=== PATIENT | female | born 1935 | race Caucasian/White ===

== ENCOUNTER 2016-03-02 11:47 | Emergency (ER) | payer OTHER ==
[~2016-03-02 11:47] MED LIST: CALCIUM 600 PO; FLONASE AL50 MCG/ACT; FLOVENT HFA110 MCG IN; LISINOPRIL10 MG PO; LOVASTATIN20 MG PO; MULTIPLE VITAMIN PO; PERCOCET1 TA4 PO; PROAIR HFA IN; RANITIDINE HCL150 MG PO; VITAMIN B12100 MCG PO; VITAMIN D-31000 UNIT PO
--- NOTE | 2016-03-02 14:31 | ED ORDER SUMMARY ---
..... Patient: BIB CABRAL OrderSheet [facility] VisitID: [id number] [address] [place] [address] 81y, F Registration Date/Time: 03/02/2016 ORDER SHEET Weight: 77.1 kg (stated) Allergies: No Known Drug Allergy GENERAL ORDERS: US Venous Left Urgent (13:03 03/02/2016 Martha DYER) (Ack 13:17 TBergley) (13:54 TBergley) PT with INR Urgent (14:27 03/02/2016 Martha DYER) (Ack 14:54 TBergley) (15:04 TBergley) CBC w Diff Urgent (14:27 03/02/2016 Martha DYER) (Ack 14:54 TBergley) (15:04 TBergley) MEDICATION ORDERS: Lovenox Subcut 80 mg (NOW) (14:26 03/02/2016 Martha DYER) (15:36 Deric R.N.) - (COUMADIN 5 MG) (14:26 03/02/2016 Martha DYER) (15:36 Deric R.N.) IV FLUIDS: ORDER SHEET NOTES: [Electronically signed by Himanshu Lee R.N. (19:19 03/02/2016)] [Electronically signed by Richie Nixon MD (14:10 03/04/2016)] [Electronically locked/signed by Himanshu Lee R.N. (19:19 03/02/2016)]
--- NOTE | 2016-03-02 14:31 | ED CLINICAL REPORT ---
Clinical Report - Physicians/Mid Levels [facility] [address] [place] [address] 03/02/2016 11:48 Patient: BIB CABRAL Arrived- By private vehicle. Historian- patient. HISTORY OF PRESENT ILLNESS Chief Complaint: LOWER EXTREMITY PAIN and SWELLING. This started yesterday and is still present (Ms Cabral had a bunion repair Feb 08. Yesterday she noted pain and swelling the the proximal medial L thigh. There is no chest pain or shortness of breath.). It was gradual in onset. Modifying factors. (worse with palpation). Severity is described as being moderate. The quality is noted to be "pain". Location: Proximal L thigh. The patient has not had redness. No difficulty walking. No bladder dysfunction, bowel dysfunction, sensory loss or motor loss. Patient denies an injury. Similar symptoms previously: None. Recent medical care: ( Recent bunion repair). REVIEW OF SYSTEMS No cough, chest pain, difficulty breathing, abdominal pain or vomiting. No diarrhea. PAST HISTORY ( PCP: Victor Hugo Winters COPD SURGERY HX: Cholecystectomy. Had hysterectomy. ( bunionectomy on 02/09/16)). SOCIAL HISTORY Former smoker. ADDITIONAL NOTES The nursing notes have been reviewed. PHYSICAL EXAM Vital Signs: 03/02/2016 15:25 BP: 147/60. HR: 75. RR: 20. O2 saturation: 95%. Temp: 98.1 F. Pain level now: 0/10. 03/02/2016 12:18 BP: 128/63. HR: 76. RR: 18. O2 saturation: 92%. Temp: 97.8 F. Pain level now: 8/10. Appearance: Alert. No acute distress. Respiratory: No respiratory distress. Breath sounds normal. Abdomen: Soft and nontender. Skin: Skin warm. Normal skin color. Extremities: Left thigh: mild tenderness located in the medial aspect of upper thigh. (toes are pink and warm with nl sensation). LABS, X-RAYS, AND EKG Lower Extremity Sonography: Positive exam. Abnormal findings consistent with acute deep venous thrombosis in the left superficial femoral vein. The exam was performed by a bulk mail technician. Laboratory Tests: CBC w Diff: (DERRICK: 03/02/2016 14:53) ( MsgRcvd 03/02/2016 15:15) Final results Test Result Flag Units (Reference) WHITE BLOOD COUNT 5.4 K/uL (4.5-11.5) RED BLOOD COUNT 4.33 M/uL (4.00-5.20) HEMOGLOBIN 12.8 gm/dL (12.0-16.0) HEMATOCRIT 39.1 % (36.0-46.0) MEAN CELL VOLUME 90 fL (80-100) MEAN CORPUSCULAR HGB 30 pg (26-34) MEAN CORPUSCULAR HGB CONC 33 g/dL (31-37) RED CELL DISTRIBUTION WIDTH 12.9 % (11.6-14.8) PLATELET COUNT 273 K/uL (150-400) NEUTROPHIL % 45.3 L % (50-75) LYMPH % 42.3 H % (25-40) MONO % 7.8 % (3-14) EOSINOPHIL % 3.9 % (0-4) BASOPHIL % 0.7 % (0-2) PT with INR: (DERRICK: 03/02/2016 14:53) ( MsgRcvd 03/02/2016 15:21) Final results Test Result Flag Units (Reference) INR 1.0 (0.8-1.2) Low Intensity Therapy: INR 1.5-2.0 PT range 18.5-23.1Mod.Intensity Therapy: INR 2.0-3.0 PT range 23.1-31.5High Intensity Therapy: INR 2.5-3.5 PT range 27.4-35.5High Intensity Therapy 2: INR 3.0-4.0 PT range 31.5-39.3 . PROGRESS AND PROCEDURES Course of Care: Pt has DVT without signs of PE. Will start on Lovenox and coumadin. Pt is advised not to massage the area. Disposition: Discharged. Condition: stable. CLINICAL IMPRESSION Deep venous thrombosis of the left femoral vein. INSTRUCTIONS Prescription Medications: Lovenox 80 mg SQ. Administer every 12 hours for 7 days. Dispense fifteen (15) pre-filled syringes. No refills. Coumadin 4 mg: take 1 tablet orally every 24 hours. Dispense ten (10). No refills. Follow-up: Follow up with your doctor Friday. Reason for referral: TO ADJUST COUMADIN AND LOVENOX. (Electronically signed by Richie Nixon MD 03/04/2016 14:10)
--- NOTE | 2016-03-02 14:31 | ED CLINICAL REPORT ---
Clinical Report - Physicians/Mid Levels [facility] [address] [place] [address] 03/02/2016 11:48 Patient: BIB CABRAL Arrived- By private vehicle. Historian- patient. HISTORY OF PRESENT ILLNESS Chief Complaint: LOWER EXTREMITY PAIN and SWELLING. This started yesterday and is still present (Ms Cabral had a bunion repair Feb 08. Yesterday she noted pain and swelling the the proximal medial L thigh. There is no chest pain or shortness of breath.). It was gradual in onset. Modifying factors. (worse with palpation). Severity is described as being moderate. The quality is noted to be "pain". Location: Proximal L thigh. The patient has not had redness. No difficulty walking. No bladder dysfunction, bowel dysfunction, sensory loss or motor loss. Patient denies an injury. Similar symptoms previously: None. Recent medical care: ( Recent bunion repair). REVIEW OF SYSTEMS No cough, chest pain, difficulty breathing, abdominal pain or vomiting. No diarrhea. PAST HISTORY ( PCP: Victor Hugo Winters COPD SURGERY HX: Cholecystectomy. Had hysterectomy. ( bunionectomy on 02/09/16)). SOCIAL HISTORY Former smoker. ADDITIONAL NOTES The nursing notes have been reviewed. PHYSICAL EXAM Vital Signs: 03/02/2016 15:25 BP: 147/60. HR: 75. RR: 20. O2 saturation: 95%. Temp: 98.1 F. Pain level now: 0/10. 03/02/2016 12:18 BP: 128/63. HR: 76. RR: 18. O2 saturation: 92%. Temp: 97.8 F. Pain level now: 8/10. Appearance: Alert. No acute distress. Respiratory: No respiratory distress. Breath sounds normal. Abdomen: Soft and nontender. Skin: Skin warm. Normal skin color. Extremities: Left thigh: mild tenderness located in the medial aspect of upper thigh. (toes are pink and warm with nl sensation). LABS, X-RAYS, AND EKG Lower Extremity Sonography: Positive exam. Abnormal findings consistent with acute deep venous thrombosis in the left superficial femoral vein. The exam was performed by a ski technician. Laboratory Tests: CBC w Diff: (DERRICK: 03/02/2016 14:53) ( MsgRcvd 03/02/2016 15:15) Final results Test Result Flag Units (Reference) WHITE BLOOD COUNT 5.4 K/uL (4.5-11.5) RED BLOOD COUNT 4.33 M/uL (4.00-5.20) HEMOGLOBIN 12.8 gm/dL (12.0-16.0) HEMATOCRIT 39.1 % (36.0-46.0) MEAN CELL VOLUME 90 fL (80-100) MEAN CORPUSCULAR HGB 30 pg (26-34) MEAN CORPUSCULAR HGB CONC 33 g/dL (31-37) RED CELL DISTRIBUTION WIDTH 12.9 % (11.6-14.8) PLATELET COUNT 273 K/uL (150-400) NEUTROPHIL % 45.3 L % (50-75) LYMPH % 42.3 H % (25-40) MONO % 7.8 % (3-14) EOSINOPHIL % 3.9 % (0-4) BASOPHIL % 0.7 % (0-2) PT with INR: (DERRICK: 03/02/2016 14:53) ( MsgRcvd 03/02/2016 15:21) Final results Test Result Flag Units (Reference) INR 1.0 (0.8-1.2) Low Intensity Therapy: INR 1.5-2.0 PT range 18.5-23.1Mod.Intensity Therapy: INR 2.0-3.0 PT range 23.1-31.5High Intensity Therapy: INR 2.5-3.5 PT range 27.4-35.5High Intensity Therapy 2: INR 3.0-4.0 PT range 31.5-39.3 . PROGRESS AND PROCEDURES Course of Care: Pt has DVT without signs of PE. Will start on Lovenox and coumadin. Pt is advised not to massage the area. Disposition: Discharged. Condition: stable. CLINICAL IMPRESSION Deep venous thrombosis of the left femoral vein. INSTRUCTIONS Prescription Medications: Lovenox 80 mg SQ. Administer every 12 hours for 7 days. Dispense fifteen (15) pre-filled syringes. No refills. Coumadin 4 mg: take 1 tablet orally every 24 hours. Dispense ten (10). No refills. Follow-up: Follow up with your doctor Friday. Reason for referral: TO ADJUST COUMADIN AND LOVENOX. (Electronically signed by Richie Nixon MD 03/04/2016 14:10)
--- NOTE | 2016-03-02 14:31 | ED ORDER SUMMARY ---
..... Patient: BIB CABRAL OrderSheet [facility] VisitID: [id number] [address] [place] [address] 81y, F Registration Date/Time: 03/02/2016 ORDER SHEET Weight: 77.1 kg (stated) Allergies: No Known Drug Allergy GENERAL ORDERS: US Venous Left Urgent (13:03 03/02/2016 Martha DYER) (Ack 13:17 TBergley) (13:54 TBergley) PT with INR Urgent (14:27 03/02/2016 Martha DYER) (Ack 14:54 TBergley) (15:04 TBergley) CBC w Diff Urgent (14:27 03/02/2016 Martha DYER) (Ack 14:54 TBergley) (15:04 TBergley) MEDICATION ORDERS: Lovenox Subcut 80 mg (NOW) (14:26 03/02/2016 Martha DYER) (15:36 Deric R.N.) - (COUMADIN 5 MG) (14:26 03/02/2016 Martha DYER) (15:36 Deric R.N.) IV FLUIDS: ORDER SHEET NOTES: [Electronically signed by Himanshu Lee R.N. (19:19 03/02/2016)] [Electronically signed by Richie Nixon MD (14:10 03/04/2016)] [Electronically locked/signed by Himanshu Lee R.N. (19:19 03/02/2016)]
--- NOTE | 2016-03-02 14:31 | ED NURSING NOTES ---
Clinical Report - Nurses [facility] [address] [place] [address] 03/02/2016 11:48 Patient: BIB CABRAL TRIAGE Triage time 12:18. Acuity: LEVEL 3. Chief Complaint: LEFT LOWER EXTREMITY PAIN. Location of symptoms- left hip (AND GROIN AREA, stinging also). Alert. TYSON COMA SCORE: [place] Coma Scale: 15- eyes open spontaneously (4); best verbal response- oriented x 4 (5); best motor response- obeys commands (6). --12:31 Jaimie Grover R.N. 12:18 03/02/16. BP: 128/63. HR: 76. RR: 18. O2 saturation: 92%. Temp: 97.8 F. Pain level now: 10/03. --12:31 Jaimie Grover R.N. Weight: 77.1 kg stated. Height/Length: 59 inches Per Patient. BMI: 34.4. --12:24 Jaimie Grover R.N. Medications Cephalexin Oral 500 mg, 3x a day, prevention of infection post op. --12:21 Jaimie Grover R.N. Allergies No Known Drug Allergy. --19:19 Himanshu Lee R.N. History Arrived by private vehicle. Historian: patient and family. Accompanied by daughter. Primary physician (Marilee Winters). This occurred yesterday. ( small red bumpy rash on left upper thigh). 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 SURGERY HX: Cholecystectomy. Had hysterectomy. ( bunionectomy on 02/09/16). SOCIAL HX: Former smoker, end date 1998. No alcohol use or drug use. --12:31 Jaimie Grover R.N. Assessment The patient states feels the same. --12:31 Jaimie Grover R.N. Interventions ID band on patient. To room. --12:31 Jaimie Grover R.N. PHYSICAL ASSESSMENT 12:32 03/02/16. EXTREMITIES: Left hip: tenderness (pt can walk on left leg, has orthopedic shoe on left foot for post op bunionectomy support). --12:32 Jaimie Grover R.N. NURSING PROGRESS NOTES 12:32 03/02/16. Patient identifiers checked. Call light placed in reach. Bed placed in lowest position. Patient ready for evaluation- chart flagged. --12:32 Jaimie Grover R.N. 13:47 03/02/16. ( US at the bedside.). --13:47 Himanshu Lee R.N. 15:15 03/02/2016 Lovenox (Enoxaparin Sodium) Subcutaneous 80 mg given. Given in the left abdomen. Allergies verified and confirmed 5 rights. (Administered by Pt after extensive Pt teaching.). --15:36 Himanshu Lee R.N. 15:17 03/02/2016 Coumadin (Warfarin Sodium) PO Tablets 5 mg given. Allergies verified and confirmed 5 rights. --15:36 Himanshu Lee R.N. late entry -15:30. ( Extensive pt teaching provided regarding self administration of Lovenox and Coumadin. Pt was able to return demonstrate self admin of Lovenox.). --16:14 Himanshu Lee R.N. 15:30 03/02/2016 Lovenox Subcutaneous Response: no adverse reaction. --19:15 Himanshu Lee R.N. 15:30 03/02/2016 Coumadin PO Response: no adverse reaction. --19:16 Himanshu Lee R.N. DISPOSITION / DISCHARGE 15:42 03/02/16. Departure time: 1530. Condition at departure: unchanged and stable. No learning barriers present. Discharge instructions provided and reviewed with the patient. Reviewed warnings. Reviewed medication(s). Patient verbalized understanding. Written instructions provided in Armenian. The patient was discharged by the physician. She was discharged home and accompanied by grinding room inspector. She left the Emergency Department ambulatory and via private vehicle. Family member driving. --15:42 Himanshu Lee R.N. 15:25 03/02/16. BP: 147/60. HR: 75. RR: 20. O2 saturation: 95% on room air. Temp: 98.1 F. Pain level now: 0/10. --15:42 Himanshu Lee R.N. Locked/Released at 03/02/2016 19:19 by Himanshu Lee R.N.
--- NOTE | 2016-03-02 14:31 | ED NURSING NOTES ---
Clinical Report - Nurses [facility] [address] [place] [address] 03/02/2016 11:48 Patient: BIB CABRAL TRIAGE Triage time 12:18. Acuity: LEVEL 3. Chief Complaint: LEFT LOWER EXTREMITY PAIN. Location of symptoms- left hip (AND GROIN AREA, stinging also). Alert. TYSON COMA SCORE: [place] Coma Scale: 15- eyes open spontaneously (4); best verbal response- oriented x 4 (5); best motor response- obeys commands (6). --12:31 Jaimie Grover R.N. 12:18 03/02/16. BP: 128/63. HR: 76. RR: 18. O2 saturation: 92%. Temp: 97.8 F. Pain level now: 10/03. --12:31 Jaimie Grover R.N. Weight: 77.1 kg stated. Height/Length: 59 inches Per Patient. BMI: 34.4. --12:24 Jaimie Grover R.N. Medications Cephalexin Oral 500 mg, 3x a day, prevention of infection post op. --12:21 Jaimie Grover R.N. Allergies No Known Drug Allergy. --19:19 Himanshu Lee R.N. History Arrived by private vehicle. Historian: patient and family. Accompanied by daughter. Primary physician (Marilee Winters). This occurred yesterday. ( small red bumpy rash on left upper thigh). 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 SURGERY HX: Cholecystectomy. Had hysterectomy. ( bunionectomy on 02/09/16). SOCIAL HX: Former smoker, end date 1998. No alcohol use or drug use. --12:31 Jaimie Grover R.N. Assessment The patient states feels the same. --12:31 Jaimie Grover R.N. Interventions ID band on patient. To room. --12:31 Jaimie Grover R.N. PHYSICAL ASSESSMENT 12:32 03/02/16. EXTREMITIES: Left hip: tenderness (pt can walk on left leg, has orthopedic shoe on left foot for post op bunionectomy support). --12:32 Jaimie Grover R.N. NURSING PROGRESS NOTES 12:32 03/02/16. Patient identifiers checked. Call light placed in reach. Bed placed in lowest position. Patient ready for evaluation- chart flagged. --12:32 Jaimie Grover R.N. 13:47 03/02/16. ( US at the bedside.). --13:47 Himanshu Lee R.N. 15:15 03/02/2016 Lovenox (Enoxaparin Sodium) Subcutaneous 80 mg given. Given in the left abdomen. Allergies verified and confirmed 5 rights. (Administered by Pt after extensive Pt teaching.). --15:36 Himanshu Lee R.N. 15:17 03/02/2016 Coumadin (Warfarin Sodium) PO Tablets 5 mg given. Allergies verified and confirmed 5 rights. --15:36 Himanshu Lee R.N. late entry -15:30. ( Extensive pt teaching provided regarding self administration of Lovenox and Coumadin. Pt was able to return demonstrate self admin of Lovenox.). --16:14 Himanshu Lee R.N. 15:30 03/02/2016 Lovenox Subcutaneous Response: no adverse reaction. --19:15 Himanshu Lee R.N. 15:30 03/02/2016 Coumadin PO Response: no adverse reaction. --19:16 Himanshu Lee R.N. DISPOSITION / DISCHARGE 15:42 03/02/16. Departure time: 1530. Condition at departure: unchanged and stable. No learning barriers present. Discharge instructions provided and reviewed with the patient. Reviewed warnings. Reviewed medication(s). Patient verbalized understanding. Written instructions provided in Uzbek. The patient was discharged by the physician. She was discharged home and accompanied by gifted teacher. She left the Emergency Department ambulatory and via private vehicle. Family member driving. --15:42 Himanshu Lee R.N. 15:25 03/02/16. BP: 147/60. HR: 75. RR: 20. O2 saturation: 95% on room air. Temp: 98.1 F. Pain level now: 0/10. --15:42 Himanshu Lee R.N. Locked/Released at 03/02/2016 19:19 by Himanshu Lee R.N.
--- NOTE | 2016-03-02 15:10 | DIAGNOSTIC IMAGING REPORT ---
PROCEDURE: US VENOUS - LEFT EXT INDICATION: Left lower extremity x 1 day, initial encounter TECHNIQUE: Duplex sonography of the deep venous system in the left lower extremity was performed. Compression and augmentation techniques were used. COMPARISON: None. FINDINGS: Acute hypoechoic DVT of the proximal superficial femoral vein. Normal compression of the greater saphenous, common femoral, popliteal, peroneal , and posterior tibial veins. Normal augmentation. There is no evidence of superficial venous thrombosis. IMPRESSION: 1. Acute DVT of the proximal left superficial femoral vein.
--- NOTE | 2016-03-04 14:10 | ED MED RECONCILIATION SUMMARY ---
Patient: BIB CABRAL Medication Reconciliation Report [facility] VisitID: [id number] [address] [place] [address] 81y, F Registration Date/Time: 03/02/2016 Weight: 77.1 kg Height/Length: 59 in. BMI: 34.4 ALLERGIES: No Known Drug Allergy The patient's Home Medications are listed below: THE FOLLOWING MEDICATIONS NEED TO BE RECONCILED: Cephalexin Oral 500 mg, 3x a day, prevention of infection post op The source(s) of the original Home Medication information: Not obtained. The following Medications were given to the patient in the Emergency Department: Lovenox [Subcutaneous] Subcutaneous 80 mg, administered: 03/02/2016 3:15:00 PM Coumadin [PO] PO 5 mg, administered: 03/02/2016 3:17:00 PM The following Medications were prescribed to the patient: Lovenox 80 mg SQ. Administer every 12 hours for 7 days. Dispense fifteen (15) pre-filled syringes. No refills. -- Richie Nixon MD Coumadin 4 mg: take 1 tablet orally every 24 hours. Dispense ten (10). No refills. -- Richie Nixon MD
--- NOTE | 2016-03-04 14:10 | ED MAR SUMMARY ---
..... Medication Administration Record [facility] [address] [place] [address] Patient: BIB CABRAL Visit ID: [id number] 81y, F Weight: 77.1 kg Height/Length: 59 in BMI: 34.4 ALLERGIES: No Known Drug Allergy Given 15:15 03/02/2016 Himanshu Lee R.N. Medication Administered: LOVENOX [SUBCUTANEOUS] (ENOXAPARIN SODIUM), Dose: 80 mg Subcutaneous. Medication Ordered: Lovenox Subcut 80 mg (NOW). Given 15:17 03/02/2016 Himanshu Lee R.N. Medication Administered: COUMADIN [PO] (WARFARIN SODIUM), Dose: 5 mg Tablets PO. Medication Ordered: - (COUMADIN 5 MG).
--- NOTE | 2016-03-04 14:10 | ED MAR SUMMARY ---
..... Medication Administration Record [facility] [address] [place] [address] Patient: BIB CABRAL Visit ID: [id number] 81y, F Weight: 77.1 kg Height/Length: 59 in BMI: 34.4 ALLERGIES: No Known Drug Allergy Given 15:15 03/02/2016 Himanshu Lee R.N. Medication Administered: LOVENOX [SUBCUTANEOUS] (ENOXAPARIN SODIUM), Dose: 80 mg Subcutaneous. Medication Ordered: Lovenox Subcut 80 mg (NOW). Given 15:17 03/02/2016 Himanshu Lee R.N. Medication Administered: COUMADIN [PO] (WARFARIN SODIUM), Dose: 5 mg Tablets PO. Medication Ordered: - (COUMADIN 5 MG).
--- NOTE | 2016-03-04 14:10 | ED MED RECONCILIATION SUMMARY ---
Patient: BIB CABRAL Medication Reconciliation Report [facility] VisitID: [id number] [address] [place] [address] 81y, F Registration Date/Time: 03/02/2016 Weight: 77.1 kg Height/Length: 59 in. BMI: 34.4 ALLERGIES: No Known Drug Allergy The patient's Home Medications are listed below: THE FOLLOWING MEDICATIONS NEED TO BE RECONCILED: Cephalexin Oral 500 mg, 3x a day, prevention of infection post op The source(s) of the original Home Medication information: Not obtained. The following Medications were given to the patient in the Emergency Department: Lovenox [Subcutaneous] Subcutaneous 80 mg, administered: 03/02/2016 3:15:00 PM Coumadin [PO] PO 5 mg, administered: 03/02/2016 3:17:00 PM The following Medications were prescribed to the patient: Lovenox 80 mg SQ. Administer every 12 hours for 7 days. Dispense fifteen (15) pre-filled syringes. No refills. -- Richie Nixon MD Coumadin 4 mg: take 1 tablet orally every 24 hours. Dispense ten (10). No refills. -- Richie Nixon MD
--- NOTE | 2016-03-04 14:10 | ED DISCHARGE INSTRUCTIONS ---
Patient: BIB CABRAL General Instructions [facility] VisitID: [id number] [place] [address] 81y, F Registration Date/Time: 03/02/2016 Deep venous thrombosis of the left femoral vein. INSTRUCTIONS Prescription Medications: Lovenox 80 mg SQ. Administer every 12 hours for 7 days. Dispense fifteen (15) pre-filled syringes. No refills. Coumadin 4 mg: take 1 tablet orally every 24 hours. Dispense ten (10). No refills. Follow-up: Follow up with your doctor Friday. Reason for referral: TO ADJUST COUMADIN AND LOVENOX. ADDITIONAL INFORMATION Deep Vein Thrombosis Deep Vein Thrombosis (DVT) means there is a blood clot in a deep vein of the leg. This may cause redness, swelling, warmth and pain of the leg. If the blood clot grows larger, a piece may break off and go to the lungs (pulmonary embolus) or to the brain (stroke). Factors that increase risk of a DVT include: overweight, smoking, use of estrogen replacement therapy. Prolonged periods without movement (such as long distance travel, wearing a fracture cast, and prolonged bed rest after surgery or during an illness) also increases the risk of a DVT. Home Care: Stay off the affected leg as much as possible during the next week. When sitting or lying down, keep the leg elevated. Compression stockings may be advised to improve blood flow in the lower legs. When resting, move your ankles, toes and knees frequently to stimulate blood flow. You will be prescribed an anti-coagulant medicine (pills or shots). Take it exactly as directed. Follow Up with your doctor as advised. NOTE: A radiologist will review any X-rays that were taken. We will notify you of any new findings that may affect your care. Get Prompt Medical Attention if any of the following occur: Shortness of breath or painful breathing Chest pain, repeated cough or coughing up blood Fever of 100.4F (38C) or higher, or as directed by your healthcare provider Increasing swelling or increasing pain in the leg Spreading redness Unexpected bleeding (nose, gums, cuts, urinary tract, vagina, rectum) Enoxaparin Sodium (Porcine) Solution for injection What is this medicine? ENOXAPARIN (ee nox a PA rin) is used after knee, hip, or abdominal surgeries to prevent blood clotting. It is also used to treat existing blood clots in the lungs or in the veins. How should I use this medicine? This medicine is for injection under the skin. It is usually given by a health-landcare facilitator. You or a family member may be trained on how to give the injections. If you are to give yourself injections, make sure you understand how to use the syringe, measure the dose if necessary, and give the injection. To avoid bruising, do not rub the site where this medicine has been injected. Do not take your medicine more often than directed. Do not stop taking except on the advice of your doctor or health landcare facilitator. Make sure you receive a puncture-resistant container to dispose of the needles and syringes once you have finished with them. Do not reuse these items. Return the container to your doctor or health landcare facilitator for proper disposal. Talk to your supervisor rolling room regarding the use of this medicine in children. Special care may be needed. What side effects may I notice from receiving this medicine? Side effects that you should report to your doctor or health landcare facilitator as soon as possible: allergic reactions like skin rash, itching or hives, swelling of the face, lips, or tongue dark urine feeling faint or lightheaded, falls fever heavy menstrual bleeding signs and symptoms of bleeding such as bloody or black, tarry stools; red or dark-brown urine; spitting up blood or brown material that looks like coffee grounds; red spots on the skin; unusual bruising or bleeding from the eye, gums, or nose signs and symptoms of a blood clot such as breathing problems; changes in vision; chest pain; severe, sudden headache; pain, swelling, warmth in the leg; trouble speaking; sudden numbness or weakness of the face, arm, or leg Side effects that usually do not require medical attention (report to your doctor or health landcare facilitator if they continue or are bothersome): pain or irritation at the injection site What may interact with this medicine? Do not take this medicine with any of the following medications: -aspirin and aspirin-like medicines -heparin -mifepristone -palifermin -warfarin This medicine may also interact with the following medications: -cilostazol -clopidogrel -dipyridamole -NSAIDs, medicines for pain and inflammation, like ibuprofen or naproxen -sulfinpyrazone -ticlopidine What if I miss a dose? If you miss a dose, take it as soon as you can. If it is almost time for your next dose, take only that dose. Do not take double or extra doses. Where should I keep my medicine? Keep out of the reach of children. Store at room temperature between 15 and 30 degrees C (59 and 86 degrees F). Do not freeze. If your injections have been specially prepared, you may need to store them in the refrigerator. Ask your pharmacist. Throw away any unused medicine after the expiration date. What should I tell my health care provider before I take this medicine? They need to know if you have any of these conditions: bleeding disorders, hemorrhage, or hemophilia infection of the heart or heart valves kidney or liver disease previous stroke prosthetic heart valve recent surgery or delivery of a baby ulcer in the stomach or intestine, diverticulitis, or other bowel disease an unusual or allergic reaction to enoxaparin, heparin, pork or pork products, other medicines, foods, dyes, or preservatives or trying to get breast-feeding What should I watch for while using this medicine? Visit your doctor or health landcare facilitator for regular checks on your progress. Your condition will be monitored carefully while you are receiving this medicine. If you are going to have surgery, tell your doctor or health landcare facilitator that you are taking this medicine. Do not stop taking this medicine without first talking to your doctor. Be sure to refill your prescription before you run out of medicine. Avoid sports and activities that might cause injury while you are using this medicine. Severe falls or injuries can cause unseen bleeding. Be careful when using sharp tools or knives. Consider using an electric razor. Take special care brushing or flossing your teeth. Report any injuries, bruising, or red spots on the skin to your doctor or health landcare facilitator. Warfarin Sodium Oral tablet What is this medicine? WARFARIN (WAR far in) is an anticoagulant. It is used to treat or prevent clots in the veins, arteries, lungs, or heart. How should I use this medicine? Take this medicine by mouth with a glass of water. Follow the directions on the prescription label. You can take this medicine with or without food. Take your medicine at the same time each day. Do not take it more often than directed. Do not stop taking except on your doctor's advice. Stopping this medicine may increase your risk of a blood clot. Be sure to refill your prescription before you run out of medicine. If your doctor or healthcare professional calls to change your dose, write down the dose and any other instructions. Always read the dose and instructions back to him or her to make sure you understand them. Tell your doctor or healthcare professional what strength of tablets you have on hand. Ask how many tablets you should take to equal your new dose. Write the date on the new instructions and keep them near your medicine. If you are told to stop taking your medicine until your next blood test, call your doctor or healthcare professional if you do not hear anything within 24 hours of the test to find out your new dose or when to restart your prior dose. A special MedGuide will be given to you by the pharmacist with each prescription and refill. Be sure to read this information carefully each time. Talk to your supervisor rolling room regarding the use of this medicine in children. Special care may be needed. What side effects may I notice from receiving this medicine? Side effects that you should report to your doctor or health landcare facilitator as soon as possible: back pain chills dizziness fever heavy menstrual bleeding or vaginal bleeding painful, blue, or purple toes painful, prolonged erection signs and symptoms of bleeding such as bloody or black, tarry stools; red or dark-brown urine; spitting up blood or brown material that looks like coffee grounds; red spots on the skin; unusual bruising or bleeding from the eye, gums, or nose-skin rash, itching or skin damage stomach pain unusually weak or tired yellowing of skin or eyes Side effects that usually do not require medical attention (report to your doctor or health landcare facilitator if they continue or are bothersome): diarrhea hair loss What may interact with this medicine? Do not take this medicine with any of the following medications: agents that prevent or dissolve blood clots aspirin or other salicylates danshen dextrothyroxine mifepristone Basile's Wort red yeast rice This medicine may also interact with the following medications: acetaminophen agents that lower cholesterol alcohol allopurinol amiodarone antibiotics or medicines for treating bacterial, fungal or viral infections azathioprine barbiturate medicines for inducing sleep or treating seizures certain medicines for diabetes certain medicines for heart rhythm problems certain medicines for high blood pressure chloral hydrate cisapride disulfiram female hormones, including contraceptive or control pills general anesthetics herbal or dietary products like garlic, ginkgo, ginseng, green tea, or kava kava influenza virus vaccine male hormones medicines for mental depression or psychosis medicines for some types of cancer medicines for stomach problems methylphenidate NSAIDs, medicines for pain and inflammation, like ibuprofen or naproxen propoxyphene quinidine, quinine raloxifene seizure or epilepsy medicine like carbamazepine, phenytoin, and valproic acid steroids like cortisone and prednisone tamoxifen thyroid medicine tramadol vitamin c, vitamin e, and vitamin K zafirlukast zileuton What if I miss a dose? It is important not to miss a dose. If you miss a dose, call your healthcare provider. Take the dose as soon as possible on the same day. If it is almost time for your next dose, take only that dose. Do not take double or extra doses to make up for a missed dose. Where should I keep my medicine? Keep out of the reach of children. Store at room temperature between 15 and 30 degrees C (59 and 86 degrees F). Protect from light. Throw away any unused medicine after the expiration date. Do not flush down the toilet. What should I tell my health care provider before I take this medicine? They need to know if you have any of these conditions: alcoholism anemia bleeding disorders cancer diabetes heart disease high blood pressure history of bleeding in the gastrointestinal tract history of stroke or other brain injury or disease kidney or liver disease protein C deficiency protein S deficiency psychosis or dementia recent injury, recent or planned surgery or procedure an unusual or allergic reaction to warfarin, other medicines, foods, dyes, or preservatives or trying to get breast-feeding What should I watch for while using this medicine? Visit your doctor or health landcare facilitator for regular checks on your progress. You will need to have a blood test called a PT/INR regularly. The PT/INR blood test is done to make sure you are getting the right dose of this medicine. It is important to not miss your appointment for the blood tests. When you first start taking this medicine, these tests are done often. Once the correct dose is determined and you take your medicine properly, these tests can be done less often. Notify your doctor or health landcare facilitator and seek emergency treatment if you develop breathing problems; changes in vision; chest pain; severe, sudden headache; pain, swelling, warmth in the leg; trouble speaking; sudden numbness or weakness of the face, arm or leg. These can be signs that your condition has gotten worse. While you are taking this medicine, carry an identification card with your name, the name and dose of medicine(s) being used, and the name and phone number of your doctor or health landcare facilitator or person to contact in an emergency. Do not start taking or stop taking any medicines or [id number]-[id number] medicines except on the advice of your doctor or health landcare facilitator. You should discuss your diet with your doctor or health landcare facilitator. Do not make major changes in your diet. Vitamin K can affect how well this medicine works. Many foods contain vitamin K. It is important to eat a consistent amount of foods with vitamin K. Other foods with vitamin K that you should eat in consistent amounts are asparagus, basil, beef or pork liver, black eyed peas, broccoli, brussel sprouts, cabbage, chickpeas, cucumber with peel, green onions, green tea, okra, parsley, peas, thyme, and green leafy vegetables like beet greens, ashkan greens, endive, kale, mustard greens, spinach, turnip greens, watercress, or certain lettuces like green leaf or thiago. This medicine can cause defects or bleeding in an unborn child. Women of childbearing age should use effective control while taking this medicine. If a woman becomes while taking this medicine, she should discuss the potential risks and her options with her health landcare facilitator. Avoid sports and activities that might cause injury while you are using this medicine. Severe falls or injuries can cause unseen bleeding. Be careful when using sharp tools or knives. Consider using an electric razor. Take special care brushing or flossing your teeth. Report any injuries, bruising, or red spots on the skin to your doctor or health landcare facilitator. If you have an illness that causes vomiting, diarrhea, or fever for more than a few days, contact your doctor. Also check with your doctor if you are unable to eat for several days. These problems can change the effect of this medicine. Even after you stop taking this medicine, it takes several days before your body recovers its normal ability to clot blood. Ask your doctor or health landcare facilitator how long you need to be careful. If you are going to have surgery or dental work, tell your doctor or health landcare facilitator that you have been taking this medicine. You have been given the following additional information: DVT Enoxaparin Sodium (Porcine) Solution for injection Warfarin Sodium Oral tablet (Electronically signed by Richie Nixon MD 03/04/2016 14:10)
--- NOTE | 2016-03-04 14:10 | ED DISCHARGE INSTRUCTIONS ---
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 INSTRUCTIONS Prescription Medications: Lovenox 80 mg SQ. Administer every 12 hours for 7 days. Dispense fifteen (15) pre-filled syringes. No refills. Coumadin 4 mg: take 1 tablet orally every 24 hours. Dispense ten (10). No refills. Follow-up: Follow up with your doctor Friday. Reason for referral: TO ADJUST COUMADIN AND LOVENOX. ADDITIONAL INFORMATION Deep Vein Thrombosis Deep Vein Thrombosis (DVT) means there is a blood clot in a deep vein of the leg. This may cause redness, swelling, warmth and pain of the leg. If the blood clot grows larger, a piece may break off and go to the lungs (pulmonary embolus) or to the brain (stroke). Factors that increase risk of a DVT include: overweight, smoking, use of estrogen replacement therapy. Prolonged periods without movement (such as long distance travel, wearing a fracture cast, and prolonged bed rest after surgery or during an illness) also increases the risk of a DVT. Home Care: Stay off the affected leg as much as possible during the next week. When sitting or lying down, keep the leg elevated. Compression stockings may be advised to improve blood flow in the lower legs. When resting, move your ankles, toes and knees frequently to stimulate blood flow. You will be prescribed an anti-coagulant medicine (pills or shots). Take it exactly as directed. Follow Up with your doctor as advised. NOTE: A radiologist will review any X-rays that were taken. We will notify you of any new findings that may affect your care. Get Prompt Medical Attention if any of the following occur: Shortness of breath or painful breathing Chest pain, repeated cough or coughing up blood Fever of 100.4F (38C) or higher, or as directed by your healthcare provider Increasing swelling or increasing pain in the leg Spreading redness Unexpected bleeding (nose, gums, cuts, urinary tract, vagina, rectum) Enoxaparin Sodium (Porcine) Solution for injection What is this medicine? ENOXAPARIN (ee nox a PA rin) is used after knee, hip, or abdominal surgeries to prevent blood clotting. It is also used to treat existing blood clots in the lungs or in the veins. How should I use this medicine? This medicine is for injection under the skin. It is usually given by a health-child care attendant school. You or a family member may be trained on how to give the injections. If you are to give yourself injections, make sure you understand how to use the syringe, measure the dose if necessary, and give the injection. To avoid bruising, do not rub the site where this medicine has been injected. Do not take your medicine more often than directed. Do not stop taking except on the advice of your doctor or health child care attendant school. Make sure you receive a puncture-resistant container to dispose of the needles and syringes once you have finished with them. Do not reuse these items. Return the container to your doctor or health child care attendant school for proper disposal. Talk to your other spatial scientist regarding the use of this medicine in children. Special care may be needed. What side effects may I notice from receiving this medicine? Side effects that you should report to your doctor or health child care attendant school as soon as possible: allergic reactions like skin rash, itching or hives, swelling of the face, lips, or tongue dark urine feeling faint or lightheaded, falls fever heavy menstrual bleeding signs and symptoms of bleeding such as bloody or black, tarry stools; red or dark-brown urine; spitting up blood or brown material that looks like coffee grounds; red spots on the skin; unusual bruising or bleeding from the eye, gums, or nose signs and symptoms of a blood clot such as breathing problems; changes in vision; chest pain; severe, sudden headache; pain, swelling, warmth in the leg; trouble speaking; sudden numbness or weakness of the face, arm, or leg Side effects that usually do not require medical attention (report to your doctor or health child care attendant school if they continue or are bothersome): pain or irritation at the injection site What may interact with this medicine? Do not take this medicine with any of the following medications: -aspirin and aspirin-like medicines -heparin -mifepristone -palifermin -warfarin This medicine may also interact with the following medications: -cilostazol -clopidogrel -dipyridamole -NSAIDs, medicines for pain and inflammation, like ibuprofen or naproxen -sulfinpyrazone -ticlopidine What if I miss a dose? If you miss a dose, take it as soon as you can. If it is almost time for your next dose, take only that dose. Do not take double or extra doses. Where should I keep my medicine? Keep out of the reach of children. Store at room temperature between 15 and 30 degrees C (59 and 86 degrees F). Do not freeze. If your injections have been specially prepared, you may need to store them in the refrigerator. Ask your pharmacist. Throw away any unused medicine after the expiration date. What should I tell my health care provider before I take this medicine? They need to know if you have any of these conditions: bleeding disorders, hemorrhage, or hemophilia infection of the heart or heart valves kidney or liver disease previous stroke prosthetic heart valve recent surgery or delivery of a baby ulcer in the stomach or intestine, diverticulitis, or other bowel disease an unusual or allergic reaction to enoxaparin, heparin, pork or pork products, other medicines, foods, dyes, or preservatives or trying to get breast-feeding What should I watch for while using this medicine? Visit your doctor or health child care attendant school for regular checks on your progress. Your condition will be monitored carefully while you are receiving this medicine. If you are going to have surgery, tell your doctor or health child care attendant school that you are taking this medicine. Do not stop taking this medicine without first talking to your doctor. Be sure to refill your prescription before you run out of medicine. Avoid sports and activities that might cause injury while you are using this medicine. Severe falls or injuries can cause unseen bleeding. Be careful when using sharp tools or knives. Consider using an electric razor. Take special care brushing or flossing your teeth. Report any injuries, bruising, or red spots on the skin to your doctor or health child care attendant school. Warfarin Sodium Oral tablet What is this medicine? WARFARIN (WAR far in) is an anticoagulant. It is used to treat or prevent clots in the veins, arteries, lungs, or heart. How should I use this medicine? Take this medicine by mouth with a glass of water. Follow the directions on the prescription label. You can take this medicine with or without food. Take your medicine at the same time each day. Do not take it more often than directed. Do not stop taking except on your doctor's advice. Stopping this medicine may increase your risk of a blood clot. Be sure to refill your prescription before you run out of medicine. If your doctor or healthcare professional calls to change your dose, write down the dose and any other instructions. Always read the dose and instructions back to him or her to make sure you understand them. Tell your doctor or healthcare professional what strength of tablets you have on hand. Ask how many tablets you should take to equal your new dose. Write the date on the new instructions and keep them near your medicine. If you are told to stop taking your medicine until your next blood test, call your doctor or healthcare professional if you do not hear anything within 24 hours of the test to find out your new dose or when to restart your prior dose. A special MedGuide will be given to you by the pharmacist with each prescription and refill. Be sure to read this information carefully each time. Talk to your other spatial scientist regarding the use of this medicine in children. Special care may be needed. What side effects may I notice from receiving this medicine? Side effects that you should report to your doctor or health child care attendant school as soon as possible: back pain chills dizziness fever heavy menstrual bleeding or vaginal bleeding painful, blue, or purple toes painful, prolonged erection signs and symptoms of bleeding such as bloody or black, tarry stools; red or dark-brown urine; spitting up blood or brown material that looks like coffee grounds; red spots on the skin; unusual bruising or bleeding from the eye, gums, or nose-skin rash, itching or skin damage stomach pain unusually weak or tired yellowing of skin or eyes Side effects that usually do not require medical attention (report to your doctor or health child care attendant school if they continue or are bothersome): diarrhea hair loss What may interact with this medicine? Do not take this medicine with any of the following medications: agents that prevent or dissolve blood clots aspirin or other salicylates danshen dextrothyroxine mifepristone Eaton's Wort red yeast rice This medicine may also interact with the following medications: acetaminophen agents that lower cholesterol alcohol allopurinol amiodarone antibiotics or medicines for treating bacterial, fungal or viral infections azathioprine barbiturate medicines for inducing sleep or treating seizures certain medicines for diabetes certain medicines for heart rhythm problems certain medicines for high blood pressure chloral hydrate cisapride disulfiram female hormones, including contraceptive or control pills general anesthetics herbal or dietary products like garlic, ginkgo, ginseng, green tea, or kava kava influenza virus vaccine male hormones medicines for mental depression or psychosis medicines for some types of cancer medicines for stomach problems methylphenidate NSAIDs, medicines for pain and inflammation, like ibuprofen or naproxen propoxyphene quinidine, quinine raloxifene seizure or epilepsy medicine like carbamazepine, phenytoin, and valproic acid steroids like cortisone and prednisone tamoxifen thyroid medicine tramadol vitamin c, vitamin e, and vitamin K zafirlukast zileuton What if I miss a dose? It is important not to miss a dose. If you miss a dose, call your healthcare provider. Take the dose as soon as possible on the same day. If it is almost time for your next dose, take only that dose. Do not take double or extra doses to make up for a missed dose. Where should I keep my medicine? Keep out of the reach of children. Store at room temperature between 15 and 30 degrees C (59 and 86 degrees F). Protect from light. Throw away any unused medicine after the expiration date. Do not flush down the toilet. What should I tell my health care provider before I take this medicine? They need to know if you have any of these conditions: alcoholism anemia bleeding disorders cancer diabetes heart disease high blood pressure history of bleeding in the gastrointestinal tract history of stroke or other brain injury or disease kidney or liver disease protein C deficiency protein S deficiency psychosis or dementia recent injury, recent or planned surgery or procedure an unusual or allergic reaction to warfarin, other medicines, foods, dyes, or preservatives or trying to get breast-feeding What should I watch for while using this medicine? Visit your doctor or health child care attendant school for regular checks on your progress. You will need to have a blood test called a PT/INR regularly. The PT/INR blood test is done to make sure you are getting the right dose of this medicine. It is important to not miss your appointment for the blood tests. When you first start taking this medicine, these tests are done often. Once the correct dose is determined and you take your medicine properly, these tests can be done less often. Notify your doctor or health child care attendant school and seek emergency treatment if you develop breathing problems; changes in vision; chest pain; severe, sudden headache; pain, swelling, warmth in the leg; trouble speaking; sudden numbness or weakness of the face, arm or leg. These can be signs that your condition has gotten worse. While you are taking this medicine, carry an identification card with your name, the name and dose of medicine(s) being used, and the name and phone number of your doctor or health child care attendant school or person to contact in an emergency. Do not start taking or stop taking any medicines or [id number] medicines except on the advice of your doctor or health child care attendant school. You should discuss your diet with your doctor or health child care attendant school. Do not make major changes in your diet. Vitamin K can affect how well this medicine works. Many foods contain vitamin K. It is important to eat a consistent amount of foods with vitamin K. Other foods with vitamin K that you should eat in consistent amounts are asparagus, basil, beef or pork liver, black eyed peas, broccoli, brussel sprouts, cabbage, chickpeas, cucumber with peel, green onions, green tea, okra, parsley, peas, thyme, and green leafy vegetables like beet greens, ashkan greens, endive, kale, mustard greens, spinach, turnip greens, watercress, or certain lettuces like green leaf or thiago. This medicine can cause defects or bleeding in an unborn child. Women of childbearing age should use effective control while taking this medicine. If a woman becomes while taking this medicine, she should discuss the potential risks and her options with her health child care attendant school. Avoid sports and activities that might cause injury while you are using this medicine. Severe falls or injuries can cause unseen bleeding. Be careful when using sharp tools or knives. Consider using an electric razor. Take special care brushing or flossing your teeth. Report any injuries, bruising, or red spots on the skin to your doctor or health child care attendant school. If you have an illness that causes vomiting, diarrhea, or fever for more than a few days, contact your doctor. Also check with your doctor if you are unable to eat for several days. These problems can change the effect of this medicine. Even after you stop taking this medicine, it takes several days before your body recovers its normal ability to clot blood. Ask your doctor or health child care attendant school how long you need to be careful. If you are going to have surgery or dental work, tell your doctor or health child care attendant school that you have been taking this medicine. You have been given the following additional information: DVT Enoxaparin Sodium (Porcine) Solution for injection Warfarin Sodium Oral tablet (Electronically signed by Richie Nixon MD 03/04/2016 14:10)
== END 2016-03-02 15:30 | disposition home or self-care (01) ==
LOC: NM SRH 11:47 → ED SRH 11:49 → NM SRH 11:49 → ED SRH 15:30
DX: I82.412 Acute embolism and thrombosis of left femoral vein (principal); J44.9 Chronic obstructive pulmonary disease, unspecified; Z79.899 Other long term (current) drug therapy; Z87.891 Personal history of nicotine dependence